=== PATIENT | female | born 1995 | race Caucasian/White ===

== ENCOUNTER 2021-03-28 18:30 | Observation (INO) | payer MEDICAID ==
[~2021-03-28] VITALS: Ht 172.7 cm; Wt 73.9 kg
[2021-03-28] MEDS ORDERED: PREN-176 PO (19:36)
== END 2021-03-28 22:45 | disposition home or self-care (01) ==
LOC: 8 EST LDRP 18:30
PROVIDERS: ADMIT Obstetrics & Gynecology; ATTEND Obstetrics & Gynecology
DX: O36.8130 Decreased fetal movements, third trimester, not applicable or unspecified (principal); O26.893 Other specified pregnancy related conditions, third trimester; R10.9 Unspecified abdominal pain; Z3A.38 38 weeks gestation of pregnancy
CPT/HCPCS: 59025; 76805; 76818; G0378; 99281

== ENCOUNTER 2021-04-03 07:52 | Inpatient (IN) | payer MEDICAID ==
[~2021-04-03] VITALS: Ht 172.7 cm; Wt 73.9 kg
[~2021-04-03 07:52] MED LIST: PREN-176 PO
[2021-04-03] MEDS ORDERED: CARBOPROST TROMETHAMINE 250 MCG/ML AMPUL IM PRN (08:15)
[2021-04-03] MEDS ORDERED: METHYLERGONOVINE MALEATE 0.2 MG/ML IM PRN (08:15)
[2021-04-03] MEDS ORDERED: RHO(D) IMMUNE GLOBULIN 300 MCG/SYR IM SCH (08:15)
[2021-04-03] MEDS ORDERED: BUTORPHANOL TARTRATE 2 MG/ML VIAL IV PRN (08:15)
[2021-04-03] MEDS ORDERED: LACTATED RINGERS 1,000 ML IV SCH (09:00)
[2021-04-03 09:10] LABS: INR 0.9; PARTIAL THROMBOPLASTIN TIME 23.6 sec (23.4-31.0); PROTHROMBIN TIME 9.7 sec (9.6-11.0)
[2021-04-03 09:15] LABS: BASOPHILS % 0.3 % (0.0-2.0); EOSINOPHILS % 0.7 % (0.0-5.0); HEMATOCRIT. 24.7 % (36.0-48.0); HEMOGLOBIN. 8.2 g/dL (12.0-16.0); LYMPHOCYTES % 20.2 % (20.0-50.0); MEAN CORPUSCULAR HEMOGLOBIN 24.8 pg (28.0-32.0); MEAN PLATELET VOLUME 8.6 fl (7.4-10.4); MONOCYTES % 6.2 % (2.0-8.0); NEUTROPHILS % 72.6 % (40.0-76.0); PLATELET 229 x1000/uL (130-400); RED BLOOD CELL COUNT 3.29 mill/uL (4.2-5.4); RED CELL DISTRIBUTION WIDTH 15.9 % (11.6-14.6)
[2021-04-03 09:59] LABS: CLARITY URINE CLOUDY (CLEAR); COLOR URINE YELLOW (YELLOW); KETONES URINE NEGATIVE (NEGATIVE); LEUKOCYTE ESTERASE URINE NEGATIVE (NEGATIVE); NITRITE URINE NEGATIVE (NEGATIVE); OCCULT BLOOD URINE NEGATIVE (NEGATIVE); PH URINE 6.5 (4.5-8.0); PROTEIN URINE 2+ (NEGATIVE); SPECIFIC GRAVITY URINE 1.012 (1.005-1.030); UROBILINOGEN URINE 0.2 E.U./dL (0.2-1.0)
[2021-04-03 10:11] LABS: *AMPHETAMINES SCREEN URINE NEGATIVE (NEGATIVE); *BARBITURATES SCREEN URINE NEGATIVE (NEGATIVE); *BENZODIAZEPINES SCREEN URINE NEGATIVE (NEGATIVE); *COCAINE SCREEN URINE NEGATIVE (NEGATIVE)
[2021-04-03 10:12] LABS: CANNABINOID URINE SCREEN NEGATIVE (NEGATIVE); METHADONE URINE SCREEN NEGATIVE (NEGATIVE); OPIATES URINE SCREEN NEGATIVE (NEGATIVE); PHENCYCLIDINE URINE SCREEN NEGATIVE (NEGATIVE)
[2021-04-03] MEDS: DEXT 5%/LR + PITOCIN 20UNITS/L 1,000 ML IV SCH ×2 (10:50→17:28)
[2021-04-03 12:27] LABS: HEPATITIS B SURFACE ANTIGEN NEGATIVE
[2021-04-03] MEDS ORDERED: FENTANYL CITRATE/PF 50MCG/ML 2ML VIAL ONE ×2 (13:18→16:07)
[2021-04-03] MEDS ORDERED: ROPIVACAINE HCL/PF EPIDURAL 200 ML EPI ONE (13:19)
[2021-04-03] MEDS ORDERED: BUPIVACAINE HCL/PF 0.25% (2.5MG/ML) 10ML ONE (13:19)
[2021-04-03] MEDS ORDERED: LIDOCAINE HCL 1% 20ML VIAL (Pyxis) INJ ONE (17:10)
[2021-04-03] MEDS ORDERED: BENZOCAINE/LANOLIN/ALOE VERA SPRAY TOP PRN (17:45)
[2021-04-03] MEDS ORDERED: ACETAMINOPHEN WITH CODEINE 300/30MG TABLET PO PRN (17:45)
[2021-04-03] MEDS ORDERED: DIPHENHYDRAMINE 25MG CAPSULE PO PRN (17:45)
[2021-04-03] MEDS ORDERED: IBUPROFEN 400MG TABLET PO PRN (17:45)
[2021-04-03] MEDS ORDERED: RHO(D) IMMUNE GLOBULIN 300 MCG/SYR IM PRN (17:45)
[2021-04-03] MEDS ORDERED: LANOLIN OINT 7GM TUBE TOP PRN (17:45)
[2021-04-03] MEDS ORDERED: BISACODYL 10MG SUPP PR PRN (17:45)
[2021-04-03] MEDS ORDERED: GLYCERIN/WITCH HAZEL LEAF MEDICATED PAD TOP PRN (17:45)
[2021-04-03] MEDS ORDERED: HEMORRHOIDAL SUPP PR PRN (17:45)
[2021-04-03] MEDS ORDERED: DEXT 5%/LR + PITOCIN 20UNITS/L 1,000 ML IV SCH (18:00)
[2021-04-03 20:00] VITALS: BP 123/75
[2021-04-03] MEDS: IBUPROFEN 800MG TABLET PO PRN (21:04)
[2021-04-03] MEDS: DOCUSATE SODIUM 100MG CAPSULE PO SCH (21:05)
[2021-04-03] MEDS: SIMETHICONE 80MG TABLET CHEW PO SCH (21:06)
[2021-04-03] MEDS: MAGNESIUM/ALUMINUM HYDROXIDE/SIMETHICONE 30ML UDC PO SCH (21:07)
[2021-04-03] MEDS ORDERED: INFLUENZA VACCINE 05/PF 0.5 ML SYRINGE IM ONE (23:30)
[2021-04-04 04:00] VITALS: BP 110/58
[2021-04-04] MEDS: IBUPROFEN 800MG TABLET PO PRN ×3 (06:44→21:03)
[2021-04-04 07:35] LABS: BASOPHILS % 0.3 % (0.0-2.0); EOSINOPHILS % 0.2 % (0.0-5.0); LYMPHOCYTES % 13.8 % (20.0-50.0); MEAN CORPUSCULAR HEMOGLOBIN 24.6 pg (28.0-32.0); MEAN CORPUSCULAR VOLUME 76.4 fL (81.0-99.0); MEAN PLATELET VOLUME 8.6 fl (7.4-10.4); MONOCYTES % 6.1 % (2.0-8.0); NEUTROPHILS % 79.6 % (40.0-76.0); PLATELET 179 x1000/uL (130-400); RED BLOOD CELL COUNT 2.42 mill/uL (4.2-5.4); RED CELL DISTRIBUTION WIDTH 15.8 % (11.6-14.6)
[2021-04-04 07:41] VITALS: BP 114/54
[2021-04-04 07:57] LABS: HEMATOCRIT. 18.5 % (36.0-48.0)
[2021-04-04] MEDS ORDERED: TETANUS, DIPHTHERIA, PERTUSSIS VAC/PF 0.5ML (>10YR OLD) IM ONE (08:00)
[2021-04-04] MEDS: MAGNESIUM/ALUMINUM HYDROXIDE/SIMETHICONE 30ML UDC PO SCH ×4 (08:26→18:01)
[2021-04-04] MEDS: SIMETHICONE 80MG TABLET CHEW PO SCH ×4 (08:26→18:02)
[2021-04-04] MEDS: FERROUS SULFATE 325MG TABLET PO SCH ×3 (08:26→18:02)
[2021-04-04] MEDS: PRENATAL VIT/FE FUMARATE/FA TABLET PO SCH ×2 (08:26→08:33)
[2021-04-04] MEDS ORDERED: INFLUENZA VACCINE 05/PF 0.5 ML SYRINGE IM ONE (10:00)
[2021-04-04 16:08] VITALS: BP 101/52
[2021-04-04 20:00] VITALS: BP 113/76
[2021-04-04] MEDS: DOCUSATE SODIUM 100MG CAPSULE PO SCH (20:56)
[2021-04-05 04:00] VITALS: BP 109/62
[2021-04-05] MEDS ORDERED: IBUP-2030 PO (05:18)
[2021-04-05] MEDS ORDERED: FERR-63 PO (05:18)
[2021-04-05 07:30] VITALS: BP 122/78
[2021-04-05] MEDS: MAGNESIUM/ALUMINUM HYDROXIDE/SIMETHICONE 30ML UDC PO SCH (07:30)
[2021-04-05] MEDS: FERROUS SULFATE 325MG TABLET PO SCH (08:38)
[2021-04-05] MEDS: PRENATAL VIT/FE FUMARATE/FA TABLET PO SCH (08:38)
[2021-04-05] MEDS: SIMETHICONE 80MG TABLET CHEW PO SCH (08:39)
== END 2021-04-05 10:45 | disposition home or self-care (01) | DRG 542 ==
LOC: 8 EST LDRP 07:52 → 8EST 20:42
PROVIDERS: ADMIT Obstetrics & Gynecology; ATTEND Obstetrics & Gynecology
PROC: 10E0XZZ Delivery of Products of Conception, External Approach (ICD-10-PCS; principal; 2021-04-03)
PROC: 0DQR0ZZ Repair Anal Sphincter, Open Approach (ICD-10-PCS; 2021-04-03)
PROC: 3E0R3BZ Introduction of Anesthetic Agent into Spinal Canal, Percutaneous Approach (ICD-10-PCS; 2021-04-03)
PROC: 00HU33Z Insertion of Infusion Device into Spinal Canal, Percutaneous Approach (ICD-10-PCS; 2021-04-03)
DX: O32.3XX0 Maternal care for face, brow and chin presentation, not applicable or unspecified (principal); Z37.0 Single live birth; O70.20 Third degree perineal laceration during delivery, unspecified; Z20.822 Contact with and (suspected) exposure to COVID-19; O99.03 Anemia complicating the puerperium; Z88.1 Allergy status to other antibiotic agents; Z3A.39 39 weeks gestation of pregnancy
CPT/HCPCS: 36415; 76805; 76818; 80305; 81003; 85025; 86592; 86703; 86762; 86850; 86900; 87340; 87426; 90686; 90715; 99281; J0595; J2590; J2795; J3010; J3490; J7120; A4315